=== PATIENT | male | born 1960 | race African-American/Black ===

== ENCOUNTER 2018-11-09 02:40 | Inpatient (IN) ==
[2018-11-09 03:08] LABS: Basophils % 0.4 % (0.1-2.0); Eosinophils % 1.2 % (0.1-12.0); Hematocrit 45.1 % (42.0-52.0); Hemoglobin 14.1 g/dL (14.1-18.0); Lymphocytes # 0.5 K/mm3 (0.7-4.5); Lymphocytes % 14.3 % (10-50); Mean Corpuscular HGB Conc 31.3 g/dL (31.8-35.4); Mean Corpuscular Volume 100.8 fl (80-94); Mean Platelet Volume 8.3 fl (7.4-10.4); Monocytes # 0.2 K/mm3 (0.1-1.0); Monocytes % 6.8 % (1.7-9.3); Neutrophils # 2.6 K/mm3 (1.8-7.8); Neutrophils % 77.2 % (37.0-80.0); Platelet Count 171 K/mm3 (142-424); Red Blood Count 4.48 M/mm3 (4.60-6.20); Red Cell Distribution Width 13.4 % (11.5-17.5); White Blood Count 3.4 K/mm3 (4.8-10.8)
[2018-11-09 03:22] LABS: Albumin Level 3.3 gm/dL (3.4-5.0); Albumin/Globulin Ratio 0.9 (1.1-1.8); Anion Gap 12.7 mEq/L (5-15); Bilirubin,Total 0.7 mg/dL (0.2-1.0); Calcium 10.1 mg/dL (8.5-10.1); Globulin 3.6 gm/dl (1.3-3.2); Total Protein,Serum 6.9 gm/dL (6.4-8.2)
[2018-11-09 04:09] LABS: Microscopic, Urine URINE MICROSCOPIC (MICROSCOPIC)
[2018-11-09 04:11] LABS: Appearance,Urine CLEAR (Clear); Bilirubin,Urine Negative (Negative); Blood, Urine Negative (Negative); Color,Urine YELLOW (Yellow); Glucose,Urine (UA) Negative (Negative); Ketones,Urine TRACE (Negative); Leukocyte Esterase,Urine Negative (Negative); Protein,Urine Negative (Negative)
[2018-11-09 04:22] LABS: ABG Base Excess 0.2 mmol/L (-2.4-2.3); ABG HCO3 23.8 mmhg (22.0-26.0); ABG Oxygen Saturation 90 % (90-100); ABG PCO2 33.2 mmhg (35.0-45.0); ABG PH 7.47 mmol/L (7.35-7.45); ABG PO2 54.7 mmhg (80-100); ABG TCO2 24.9 mmhg (23-27); Allen's Test Y; Oxygen 2 %
[2018-11-09 04:31] LABS: Bacteria,Urine Trace /lpf; Squamous Epithelial Cell,Urine Occasional #/hpf (0-5); WBC,Urine Occasional #/hpf (0-3)
--- NOTE | 2018-11-09 05:31 | Emergency Department Note ---
ED Disposition Clinical Impression: SIRS (systemic inflammatory response syndrome), Prostate enlargement, Schizo- affective schizophrenia CAP (community acquired pneumonia) Qualifiers: Laterality: unspecified laterality Qualified Code(s): J18.9 - Pneumonia, unspecified organism Diabetes mellitus Qualifiers: Diabetes mellitus type: type 2 Diabetes mellitus terminal supervisor insulin use: unspecified skilled nursing insulin use status Diabetes mellitus complication status: without complication Qualified Code(s): E11.9 - Type 2 diabetes mellitus without complications Cholelithiasis Qualifiers: Cholelithiasis location: gallbladder Cholecystitis presence: without cholecystitis Biliary obstruction: without biliary obstruction Qualified Co de(s): K80.20 - Calculus of gallbladder without cholecystitis without obstruction Incontinence of urine Qualifiers: Urinary Incontinence type: unspecified incontinence Qualified Code(s): R32 - Unspecified urinary incontinence Disposition: Admitted as Observation Condition on Discharge: Good Referrals: Donell Live MD [Primary Care Provider] - - Critical Care Critical Care Time: No Attestation: On 11/09/18, the high probability of a clinically significant, sudden or life threatening deterioration of the following system(s) required my full and direct attention, intervention and personal management. The time I documented below is in addition to time spent performing reported procedures but includes the following listed in this critical care notation. Medical Decision Making - Medical Records Medical records reviewed: Yes: I reviewed the patient's medical records. - Caden Inquiry Pt receiving controlled substance: No Vital Signs: 11/09/18 02:41 11/09/18 04:04 11/09/18 04:52 Temperature 102.0 F H Temperature Source Oral Pulse Rate [Right Radial] 103 H 97 H 100 H Respiratory Rate 20 18 18 Blood Pressure [Right Arm] 157/99 H 134/39 L 135/82 Blood Pressure Mean [Right Arm] 118 70 99 02 Sat by Pulse Oximetry 94 L 86 L 95 Oxygen Delivery Method Room Air Nasal Cannula Nasal Cannula Oxygen Flow Rate (LPM) 2 2 11/09/18 05:21 Temperature 100.3 F H Temperature Source Oral Pulse Rate [Right Radial] Respiratory Rate Blood Pressure [Right Arm] Blood Pressure Mean [Right Arm] 02 Sat by Pulse Oximetry Oxygen Delivery Method Oxygen Flow Rate (LPM) - Lab Data Lab results reviewed: Yes: I reviewed the patient's lab results. Lab Results 11/09/18 02:54: WBC 3.4 L D, RBC 4.48 L, Hgb 14.1, Hct 45.1, MCV 100.8 H, MCH 31.6 H, MCHC 31.3 L, RDW 13.4, Plt Count 171, MPV 8.3, Neut % (Auto) 77.2, Lymph % (Auto) 14.3, [place] % (Auto) 6.8, Eos % (Auto) 1.2, Baso % (Auto) 0.4, Neut # (Auto) 2.6, Lymph # (Auto) 0.5 L, [place] # (Auto) 0.2, Eos # (Auto) 0.0, Baso # (Auto) 0.0 11/09/18 02:54: Sodium 143, Potassium 3.7, Chloride 105, Carbon Dioxide 29, Anio n Gap 12.7, BUN 14, Creatinine 0.93, Estimated Creat Clear 79, Estimated GFR 84, Est GFR ( Amer) 101, Glucose 125 H, Calcium 10.1, Total Bilirubin 0.7, AST 10 L, ALT 14, Alkaline Phosphatase 43 L, Total Protein 6.9, Albumin 3.3 L, Globulin 3.6 H, Albumin/Globulin Ratio 0.9 L 11/09/18 02:54: Lactate 1.9 11/09/18 04:01: Urine Color Yellow, Urine Appearance Clear, Urine pH 7.0, Ur Specific [place] 1.010, Urine Protein Negative, Urine Glucose (UA) Negative, Urine Ketones Trace, Urine Blood Negative, Urine Nitrate Negative, Urine Bilirubin Negative, Urine Urobilinogen 2.0, Ur Leukocyte Esterase Negative, Urine WBC Occasional, Ur Squamous Epith Cells Occasional, Urine Bacteria Trace 11/09/18 04:20: Specimen Source R/r, O2 % 2, ABG pH 7.47 H, ABG pCO2 33.2 L, ABG pO2 54.7 L, ABG HCO3 23.8, ABG Total CO2 24.9, ABG O2 Saturation 90, ABG Base Excess 0.2, Macario Test Y 11/09/18 04:44: Influenza Type A Ag Negative, Influenza Type B Ag Negative Result diagrams: 11/09/18 02:54 11/09/18 02:54 Orders (Tests/Meds): ED MEDICATIONS Generic Name Dose Route Start Last Admin Trade Name Freq PRN Reason Stop Dose Admin Sodium Chloride 1,000 mls @ 999 mls/hr 11/09/18 03:00 11/09/18 03:30 Sod Chlor 0.9% 1000ml Bag IV 11/09/18 04:00 999 mls/hr .[id number] ALECIA Administration Discontinued Medications Generic Name Dose Route Start Last Admin Trade Name Ivan PRN Reason Stop Dose Admin Acetaminophen 1,000 mg 11/09/18 03:00 11/09/18 03:03 Tylenol 500mg Tablet PO 11/09/18 03:01 1,000 mg ONCE ONE Administration ORDERS Category Date Time Status CT head/brain wo con Stat Cat Scan 11/09/18 02:47 Taken XR chest portable Stat Exams 11/09/18 03:37 Taken Free Valproic Acid (Depakote) Routine Lab 11/09/18 02:54 Received Blood Culture Stat Micro 11/09/18 03:00 Received ABG [Arterial Blood Gas] Stat RT 11/09/18 04:04 Ordered - Radiology Data #1 Image(s): Chest Image Reviewed: Yes I reviewed the patient's radiology image Preliminary Findings: Abnormal (bilat inflitrate ) - CT Data CT Scan: Head Time Received: 05:[address] Reviewed: Yes: I have viewed the radiologist's interpretation Preliminary Findings: Normal/NAD Fever HPI - General Chief Complaint: Fever Stated Complaint: fever Time Seen by Provider: 11/09/18 03:00 Mode of Arrival: EMS Source of Information: Patient, EMS, Medical Record Limitations: No Limitations Description of Symptoms (Recalled from ER Triage Doc. by RN): pt presents to ed from [facility] with c/o fever chills and "shaking" - History of Present Illness HPI Narrative: sent from [facility] with fever and chills and change in mental status - had recently been placed on abx for possible urinary infection - he unable to give hx - no rash or cough - has hx of diabetes and urinary incont MD complaint: fever Onset (ago): hour(s) Associated symptoms: chills Treatments prior to arrival fever: none - Related Data Home Medications Medication Instructions Recorded Confirmed amlodipine 5 mg-atorvastatin 10 mg 1 tab PO ONCE 04/17/17 11/09/18 tablet benztropine 1 mg tablet 1 mg PO BID 04/17/17 11/09/18 doxazosin 1 mg tablet 1 mg PO QHS 04/17/17 11/09/18 haloperidol 10 mg tablet 10 mg PO TID 04/17/17 11/09/18 lisinopril 20 mg tablet 20 mg PO ONCE 04/17/17 11/09/18 melatonin 5 mg capsule 10 mg PO DAILY 04/17/17 11/09/18 metformin 500 mg tablet 500 mg PO BID 04/17/17 11/09/18 metoprolol tartrate 25 mg tablet 25 mg PO BID 04/17/17 11/09/18 omeprazole magnesium 20 mg 20 mg PO BID 04/17/17 11/09/18 tablet,delayed release trazodone 150 mg tablet 75 mg PO QHS PRN 04/17/17 11/09/18 acetaminophen 325 mg capsule 325 mg PO Q6H PRN 07/03/17 11/09/18 divalproex 500 mg tablet,delayed 500 mg PO QID 07/03/17 11/09/18 release ergocalciferol (vitamin D2) 50,000 50,000 unit PO QWEEK 07/03/17 11/09/18 unit capsule finasteride 5 mg tablet 5 mg PO ONCE 07/03/17 11/09/18 metoprolol succinate ER 50 mg 50 mg PO ONCE 07/03/17 11/09/18 tablet,extended release 24 hr Guaifenesin/Dextromethorphan 10 ml PO Q4HP PRN 11/09/18 11/09/18 [Robafen Dm Cough Syrup] Oxybutynin Chloride [Ditropan Xl] 5 mg PO BID 11/09/18 11/09/18 Sitagliptin Phosphate [Januvia 100 mg PO DAILY 11/09/18 11/09/18 100mg tablet] levoFLOXacin [Levaquin] 500 mg PO DAILY 11/09/18 11/09/18 Allergies Allergy/AdvReac Type Severity Reaction Status Date / Time chlorpromazine Allergy Unknown Verified 11/09/18 02:47 [From Thorazine] diphenhydramine Allergy Unknown Verified 11/09/18 02:47 [From Benadryl Allergy] [facility] History - Hepatitis A Screen Drug use history?: No High risk sexual behaviors?: No History of sexually transmitted infection?: No Currently employed?: No Childcare worker?: No Do you have indoor plumbing?: Yes Do you have electricity?: Yes Attestation statement:: This patient has been screened for Hepatitis A risk factors. I have reviewed the patient's past medical history: Yes Medical History: Reports:: Diabetes Mellitus Type 1, Gastroesophageal Reflux Disease(GERD), Hypertension Other Medical History: Reports: Other Laterality Cases: Bilateral: Other Amputation: No Fractures: No - Social History Smoking Status: Current every day smoker Tobacco Type: cigarettes # Packs/Day (cigarettes): 1 Alcohol Intake: never Alcohol Intake Frequency:: holidays/special occasions only Substance Use Type: denies use Occupational Status: disabled Housing: correction Family Hx:: No significant family history ROS Obtained: Yes All systems reviewed & no additional complaints - Constitutional Constitutional: Reports fever(s) - Eyes Eyes: Denies change in vision - ENT Ears, Nose, Mouth, and Throat: Denies sore throat - Cardiovascular Cardiovascular: Denies chest pain - Respiratory Respiratory: No cough - Gastrointestinal Gastrointestingal: Denies: diarrhea, nausea - Genitourinary Male Genitourinary: Denies hematuria - Musculoskeletal Musculoskeletal: Denies joint pain - Integumentary/Breasts Skin/Breast: Denies rash - Neurologic Neurologic: Denies convulsions, Denies focal weakness, Denies loss of vision Physical Exam - General General appearance: alert - Head Head exam: normocephalic - Eye Eye exam: Present: PERRL, EOMI. Absent: scleral icterus - ENT ENT exam: Present: mucous membranes dry - Neck Neck exam: Present: trachea midline - Respiratory Respiratory exam: Present: other (dec bs bilat ). Absent: respiratory distress - Cardiovascular Cardiovascular exam: Present: regular rate, systolic murmur - Abdominal Exam Abdominal exam: Present: soft - Extremities Exam Extremities exam: Present: full ROM. Absent: tenderness - Neurological Exam Neurological exam: Present: alert, CN II-XII intact. Absent: motor sensory deficit - Skin Skin exam: Absent: rash
--- NOTE | 2018-11-09 07:38 | Pharmacy Consult Notes ---
[facility] Pharmacy VTE Monitoring - Patient Demographics Admission date: 11/09/18 Report Date: 11/09/18 Time: 07:38 Allergies/Adverse Reactions: Patient Allergies chlorpromazine [From Thorazine] Allergy (Unknown, Verified 11/09/18 02:47) diphenhydramine [From Benadryl Allergy] Allergy (Unknown, Verified 11/09/18 02:47) Height: 1.75 m Weight: 70.817 kg Patient Problems: Current Active Problems Prostate enlargement (Acute) Cholelithiasis (Acute) Incontinence of urine (Acute) CAP (community acquired pneumonia) (Acute) SIRS (systemic inflammatory response syndrome) (Acute) Diabetes mellitus (Acute) Schizo-affective schizophrenia (Acute) - VTE Risk Labs: VTE Related Lab Results Hgb 14.1 g/dL (14.1-18.0) 11/09/18 02:54 Hct 45.1 % (42.0-52.0) 11/09/18 02:54 Plt Count 171 K/mm3 (142-424) 11/09/18 02:54 BUN 14 mg/dL (7-18) 11/09/18 02:54 Creatinine 0.93 mg/dL (0.70-1.30) 11/09/18 02:54 Estimated Creat Clear 79 mL/min (50-200) 11/09/18 02:54 - Prophylaxis VTE Prophylaxis Ordered?: Yes Types of VTE Prophylaxis: TEDS Knee High Location of Applied Device: Bilateral Lower Extremeties - VTE Diagnosis Confirmed Treatment or plan recommended: Continue Current Treatment
--- NOTE | 2018-11-09 16:45 | History & Physical Report ---
*Admission Date: 11/09/18 *Chief complaint: fever *History of present illness: this pt was sent from long-term for fever and altered mental status - he had been in the ed prior with urinary sx and was sent home on abx - he has hx of incont and increased prostate - pt was admitted with cap with abx and fluids [facility] History I have reviewed the patient's past medical history: Yes Medical History: Reports:: Diabetes Mellitus Type 1, Gastroesophageal Reflux Disease(GERD), Hypertension Denies:: Cancer, Diabetes Mellitus Type 2, MRSA *Have you ever received a pneumonia vaccine?: No *Have you received a flu vaccine this season?: No Other Medical History: Reports: Other Laterality Cases: Bilateral: Other Amputation: No Fractures: No - *Social History Smoking Status: Current every day smoker Tobacco Type: cigarettes # Packs/Day (cigarettes): 1 Alcohol Intake: never Alcohol Intake Frequency:: holidays/special occasions only Substance Use Type: denies use *Occupational Status:: disabled Housing: snf *Travel in the last 8 weeks: None Family Hx:: Unable to obtain Review of Systems - Review of Systems Review of systems:: pertinent systems reviewed and negative unless documented below - Constitutional Reports fever(s) - Eyes Denies change in vision - ENT Denies sore throat - *Cardiovascular Denies chest pain at rest - *Respiratory Reports cough, Denies coughing up blood - *Gastrointestinal Denies abdominal pain - *Genitourinary Denies blood in urine - *Musculoskeletal Denies joint pain, Denies joint swelling - Integumentary/Breasts Denies rash - *Neurologic Denies seizure-like activity, Denies localized weakness, Denies loss of vision - Psychiatric Reports confusion Meds Home Medications Medication Instructions Recorded Confirmed Type doxazosin 1 mg tablet 1 mg PO QHS 04/17/17 11/09/18 History haloperidol 10 mg tablet 10 mg PO TID 04/17/17 11/09/18 History lisinopril 20 mg tablet 20 mg PO DAILY 04/17/17 11/09/18 History melatonin 5 mg capsule 10 mg PO HS 04/17/17 11/09/18 History metformin 500 mg tablet 500 mg PO BIDWM 04/17/17 11/09/18 History omeprazole magnesium 20 mg 20 mg PO DAILY 04/17/17 11/09/18 History tablet,delayed release trazodone 150 mg tablet 150 mg PO HS 04/17/17 11/09/18 History divalproex 500 mg tablet,delayed 500 mg PO QID 07/03/17 11/09/18 History release ergocalciferol (vitamin D2) 50,000 50,000 unit PO MO@0900 07/03/17 11/09/18 History unit capsule finasteride 5 mg tablet 5 mg PO HS 07/03/17 11/09/18 History metoprolol succinate ER 50 mg 50 mg PO DAILY 07/03/17 11/09/18 History tablet,extended release 24 hr Acetaminophen 650 mg PO Q4HP PRN 11/09/18 11/09/18 History Amlodipine Besylate [Amlodipine 5 mg PO DAILY 11/09/18 11/09/18 History 5mg tab] Benztropine Mesylate [Cogentin 1mg 1 mg PO HS 11/09/18 11/09/18 History tablet] Guaifenesin/Dextromethorphan 10 ml PO Q4HP PRN 11/09/18 11/09/18 History [Robafen Dm Cough Syrup] Metoprolol Succinate 25 mg PO DAILY 11/09/18 11/09/18 History Oxybutynin Chloride [Ditropan Xl] 5 mg PO BID 11/09/18 11/09/18 History Sitagliptin Phosphate [Januvia 100 mg PO DAILY 11/09/18 11/09/18 History 100mg tablet] levoFLOXacin [Levaquin] 500 mg PO DAILY 11/09/18 11/09/18 History Allergies Allergy/AdvReac Type Severity Reaction Status Date / Time chlorpromazine Allergy Unknown Verified 11/09/18 02:47 [From Thorazine] diphenhydramine Allergy Unknown Verified 11/09/18 02:47 [From Benadryl Allergy] Exam Vital signs and Labs for Last 24 Hours: Temp Pulse Resp BP Pulse Ox 99.0 F 96 H 17 132/89 92 L 11/09/18 16:33 11/09/18 16:33 11/09/18 16:33 11/09/18 16:33 11/09/18 16:33 Laboratory Results - last 24 hr 11/09/18 02:54: WBC 3.4 L D, RBC 4.48 L, Hgb 14.1, Hct 45.1, MCV 100.8 H, MCH 31.6 H, MCHC 31.3 L, RDW 13.4, Plt Count 171, MPV 8.3, Neut % (Auto) 77.2, Lymph % (Auto) 14.3, [place] % (Auto) 6.8, Eos % (Auto) 1.2, Baso % (Auto) 0.4, Neut # (Auto) 2.6, Lymph # (Auto) 0.5 L, [place] # (Auto) 0.2, Eos # (Auto) 0.0, Baso # (Auto) 0.0 11/09/18 02:54: Sodium 143, Potassium 3.7, Chloride 105, Carbon Dioxide 29, Anion Gap 12.7, BUN 14, Creatinine 0.93, Estimated Creat Clear 79, Estimated GFR 84, Est GFR ( Amer) 101, Glucose 125 H, Calcium 10.1, Total Bilirubin 0.7, AST 10 L, ALT 14, Alkaline Phosphatase 43 L, Total Protein 6.9, Albumin 3.3 L, Globulin 3.6 H, Albumin/Globulin Ratio 0.9 L 11/09/18 02:54: Lactate 1.9 11/09/18 04:01: Urine Color Yellow, Urine Appearance Clear, Urine pH 7.0, Ur Specific [place] 1.010, Urine Protein Negative, Urine Glucose (UA) Negative, Urine Ketones Trace, Urine Blood Negative, Urine Nitrate Negative, Urine Bilirubin Negative, Urine Urobilinogen 2.0, Ur Leukocyte Esterase Negative, Urine WBC Occasional, Ur Squamous Epith Cells Occasional, Urine Bacteria Trace 11/09/18 04:20: Specimen Source R/r, O2 % 2, ABG pH 7.47 H, ABG pCO2 33.2 L, ABG pO2 54.7 L, ABG HCO3 23.8, ABG Total CO2 24.9, ABG O2 Saturation 90, ABG Base Excess 0.2, Macario Test Y 11/09/18 04:44: Influenza Type A Ag Negative, Influenza Type B Ag Negative 11/09/18 06:58: POC Glucose 85 11/09/18 11:10: POC Glucose 117 H I & O for Last 24 hours: Intake & Output 11/07/18 11/08/18 11/09/18 11/10/18 11:59 11:59 11:59 11:59 Intake Total 1370 / 1370 360 / 360 Balance 1370 / 1370 360 / 360 Weight 156 lb 2 oz 156 lb 1.996 oz - Constitutional no acute distress, agitated - *Routine HEENT Exam Head: Present: normocephalic Eye: Present: EOMI, PERRL. Absent: conjunctival icterus ENT: Present: mucous membranes dry - *Routine Neck Exam Present: supple - *Routine Respiratory Exam Present: decreased breath sounds - *Routine Cardiovascular Exam Present: RRR, murmur - *Routine Abdominal Exam Present: soft - *Routine Extremities Exam Absent: calf tenderness - *Routine Skin Exam Present: intact - *Routine Neurological Exam Present: CN II-XII intact, altered mental status, moving all extremities - Routine Psychiatric Exam Present: unable to assess Assessment and Plan (1) Prostate enlargement Current visit: Yes Status: Acute Category: Medical Code(s): N40.0 - Benign prostatic hyperplasia without lower urinary tract symptoms (2) Cholelithiasis Current visit: Yes Status: Acute Qualifiers: Cholelithiasis location: gallbladder Cholecystitis presence: without cholecystitis Biliary obstruction: without biliary obstruction Qualified Code(s): K80.20 - Calculus of gallbladder without cholecystitis without obstruction Category: Medical Code(s): K80.20 - Calculus of gallbladder without cholecystitis without obstruction (3) Hydronephrosis Current visit: No Status: Acute Qualifiers: Hydronephrosis type: unspecified Qualified Code(s): N13.30 - Unspecified hydronephrosis Category: Medical Code(s): N13.30 - Unspecified hydronephrosis (4) Incontinence of urine Current visit: Yes Status: Acute Qualifiers: Urinary Incontinence type: unspecified incontinence Qualified Code(s): R32 - Unspecified urinary incontinence Category: Medical Code(s): R32 - Unspecified urinary incontinence (5) CAP (community acquired pneumonia) Current visit: Yes Status: Acute Qualifiers: Laterality: unspecified laterality Qualified Code(s): J18.9 - Pneumonia, unspecified organism Category: Medical Code(s): J18.9 - Pneumonia, unspecified organism (6) SIRS (systemic inflammatory response syndrome) Current visit: Yes Status: Acute Category: Medical Code(s): R65.10 - Systemic inflammatory response syndrome (SIRS) of non-infectious origin without acute organ dysfunction (7) Schizo-affective schizophrenia Current visit: Yes Status: Acute Category: Medical Code(s): F25.0 - Schizoaffective disorder, bipolar type
--- NOTE | 2018-11-10 12:37 | Consult Report ---
*Admission Date: 11/09/18 *Reason for consult:: Prostate enlargement *History of present illness: [facility] with some mental status changes. He actually has chronic schizophrenia and resides there. He has a pop of the [facility]. I have been asked to see him for prostate enlargement. There is some question of whether he had a urinary infection although his urinal ysis was completely unremarkable upon his admission here yesterday. He had a PSA on 08 November which was 3.2. He had a CT scan upon admission. This was of the chest abdomen and pelvis. This did reveal some prostate enlargement and some general thickening of the bladder wall although not distended. He had no evidence of renal masses or tumors. No evidence of stones. He is unable to give any information. I reviewed his chart and his CT scan. Physical exam he is quite agitated. Rectal exam was deferred based upon the above findings. He does not appear to be in retention. His creatinine was 0.9. Impression prostate enlargement on CT scan. He is in a depends. I see no reason for further intervention at this time. I see no reason to suspect prostate cancer. I will see him on an as-needed basis Review of Systems - *Neurologic Denies seizure-like activity, Denies localized weakness, Denies loss of vision [facility] History Medical History: Reports:: Diabetes Mellitus Type 1, Gastroesophageal Reflux Disease(GERD), Hypertension Denies:: Cancer, Diabetes Mellitus Type 2, MRSA *Have you ever received a pneumonia vaccine?: No *Have you received a flu vaccine this season?: No Other Medical History: Reports: Other Laterality Cases: Bilateral: Other Amputation: No Fractures: No - *Social History Smoking Status: Current every day smoker Tobacco Type: cigarettes # Packs/Day (cigarettes): 1 Alcohol Intake: never Alcohol Intake Frequency:: holidays/special occasions only Substance Use Type: denies use *Occupational Status:: disabled Housing: longterm *Travel in the last 8 weeks: None Family Hx:: Unable to obtain Meds Home Medications Medication Instructions Recorded Confirmed Type doxazosin 1 mg tablet 1 mg PO QHS 04/17/17 11/09/18 History haloperidol 10 mg tablet 10 mg PO TID 04/17/17 11/09/18 History lisinopril 20 mg tablet 20 mg PO DAILY 04/17/17 11/09/18 History melatonin 5 mg capsule 10 mg PO HS 04/17/17 11/09/18 History metformin 500 mg tablet 500 mg PO BIDWM 04/17/17 11/09/18 History omeprazole magnesium 20 mg 20 mg PO DAILY 04/17/17 11/09/18 History tablet,delayed release trazodone 150 mg tablet 150 mg PO HS 04/17/17 11/09/18 History divalproex 500 mg tablet,delayed 500 mg PO QID 07/03/17 11/09/18 History release ergocalciferol (vitamin D2) 50,000 50,000 unit PO MO@0900 07/03/17 11/09/18 History unit capsule finasteride 5 mg tablet 5 mg PO HS 07/03/17 11/09/18 History metoprolol succinate ER 50 mg 50 mg PO DAILY 07/03/17 11/09/18 History tablet,extended release 24 hr Acetaminophen 650 mg PO Q4HP PRN 11/09/18 11/09/18 History Amlodipine Besylate [Amlodipine 5 mg PO DAILY 11/09/18 11/09/18 History 5mg tab] Benztropine Mesylate [Cogentin 1mg 1 mg PO HS 11/09/18 11/09/18 History tablet] Guaifenesin/Dextromethorphan 10 ml PO Q4HP PRN 11/09/18 11/09/18 History [Robafen Dm Cough Syrup] Metoprolol Succinate 25 mg PO DAILY 11/09/18 11/09/18 History Oxybutynin Chloride [Ditropan Xl] 5 mg PO BID 11/09/18 11/09/18 History Sitagliptin Phosphate [Januvia 100 mg PO DAILY 11/09/18 11/09/18 History 100mg tablet] levoFLOXacin [Levaquin] 500 mg PO DAILY 11/09/18 11/09/18 History Allergies Allergy/AdvReac Type Severity Reaction Status Date / Time chlorpromazine Allergy Unknown Verified 11/09/18 02:47 [From Thorazine] diphenhydramine Allergy Unknown Verified 11/09/18 02:47 [From Benadryl Allergy] Exam Vital signs and Labs for Last 24 Hours: Temp Pulse Resp BP Pulse Ox 98.0 F 95 H 18 146/98 H 94 L 11/10/18 11:49 11/10/18 11:49 11/10/18 11:49 11/10/18 11:49 11/10/18 11:49 Laboratory Results - last 24 hr 11/09/18 17:02: POC Glucose 116 H 11/09/18 20:10: POC Glucose 110 11/10/18 05:48: POC Glucose 78 I & O for Last 24 hours: Intake & Output 11/07/18 11/08/18 11/09/18 11/10/18 23:59 23:59 23:59 23:59 Intake Total 2609 / 2609 879 / 879 Balance 2609 / 2609 879 / 879 Weight 70.817 kg 71.299 kg Results - Labs 11/09/18 02:54 11/09/18 02:54 Laboratory Results - last 24 hr 11/09/18 17:02: POC Glucose 116 H 11/09/18 20:10: POC Glucose 110 11/10/18 05:48: POC Glucose 78
--- NOTE | 2018-11-10 13:13 | Progress Note ---
Internal Medicine - PN: Subj *Date: 11/10/18 *Time: 18:25 Interval history: 57-year-old male lying in bed resting quietly, awakens to verbal/tactile stimuli. He denies any complaints during the night or now. Staff reports he was agitated during the night at various times. Exam Vital signs and Labs for Last 24 Hours: Temp Pulse Resp BP Pulse Ox 98.0 F 95 H 18 146/98 H 94 L 11/10/18 11:49 11/10/18 11:49 11/10/18 11:49 11/10/18 11:49 11/10/18 11:49 Laboratory Results - last 24 hr 11/09/18 17:02: POC Glucose 116 H 11/09/18 20:10: POC Glucose 110 11/10/18 05:48: POC Glucose 78 11/10/18 12:28: POC Glucose 69 L I & O for Last 24 hours: Intake & Output 11/07/18 11/08/18 11/09/18 11/10/18 23:59 23:59 23:59 23:59 Intake Total 2609 / 2609 879 / 879 Balance 2609 / 2609 879 / 879 Weight 156 lb 1.996 oz 157 lb 3 oz - Constitutional no acute distress - *Routine HEENT Exam Head: Present: normocephalic, atraumatic. Absent: tenderness of temporal artery Eye: Present: EOMI, PERRL. Absent: conjunctival icterus ENT: Present: mucous membranes dry. Absent: sinus tenderness - *Routine Neck Exam Present: supple, trachea midline. Absent: tracheal deviation - *Routine Respiratory Exam Present: CTA bilaterally. Absent: accessory muscle use, rales - *Routine Cardiovascular Exam Present: murmur - *Routine Abdominal Exam Present: soft, normoactive bowel sounds. Absent: tenderness, firm - *Routine Extremities Exam Present: full ROM, pulses intact. Absent: cyanosis - Routine Back/Spine/Pelvis Exam Back/Spine: Present: full ROM. Absent: CVA tenderness, pain with flexion - *Routine Skin Exam Present: intact, warm. Absent: cyanosis, erythema - *Routine Neurological Exam Present: alert, CN II-XII intact, moving all extremities - Routine Psychiatric Exam Present: normal affect. Absent: visual hallucinations, tactile hallucinations Assessment and Plan (1) Prostate enlargement Current visit: Yes Status: Acute Category: Medical Code(s): N40.0 - Benign prostatic hyperplasia without lower urinary tract symptoms (2) CAP (community acquired pneumonia) Current visit: Yes Status: Acute Qualifiers: Laterality: unspecified laterality Qualified Code(s): J18.9 - Pneumonia, unspecified organism Category: Medical Code(s): J18.9 - Pneumonia, unspecified organism (3) Schizo-affective schizophrenia Current visit: Yes Status: Acute Category: Medical Code(s): F25.0 - Schizoaffective disorder, bipolar type - Assessment and plan all Dx Assessment and Plan for all problems:: Rounds completed, Dr. Live will see this afternoon, all orders per Dr. Live 11/09 CXR IMPRESSION: Bilateral areas of alveolar consolidation. This could be from edema or pneumonia and because the bilateral appearance could be opportunistic. Suggest follow-up until resolution. Dictated by: [facility] has seen and recommends: He had a PSA on 08 November which was 3.2. He had a CT scan upon admission. This was of the chest abdomen and pelvis. This did reveal some prostate enlargement and some general thickening of the bladder wall although not distended. He had no evidence of renal masses or tumors. No evidence of stones. He is unable to give any information. I reviewed his chart and his CT scan. Physical exam he is quite agitated. Rectal exam was deferred based upon the above findings. He does not appear to be in retention. His creatinine was 0.9. Impression prostate enlargement on CT scan. He is in a depends. I see no reason for further intervention at this time. I see no reason to suspect prostate cancer. I will see him on an as-needed basis (Per Dr. Felipe) 1. PSA pending 2. Blood CX.s pending 3. Labs AM
[2018-11-11 06:28] LABS: Basophils % 0.2 % (0.1-2.0); Eosinophils % 0.1 % (0.1-12.0); Hematocrit 35.6 % (42.0-52.0); Hemoglobin 11.5 g/dL (14.1-18.0); Lymphocytes % 10.5 % (10-50); Mean Corpuscular HGB Conc 32.4 g/dL (31.8-35.4); Mean Corpuscular Volume 99.1 fl (80-94); Monocytes # 0.7 K/mm3 (0.1-1.0); Monocytes % 7.4 % (1.7-9.3); Neutrophils # 7.4 K/mm3 (1.8-7.8); Neutrophils % 81.7 % (37.0-80.0); Platelet Count 193 K/mm3 (142-424); Red Blood Count 3.59 M/mm3 (4.60-6.20); Red Cell Distribution Width 13.4 % (11.5-17.5)
[2018-11-11 06:50] LABS: Albumin Level 2.4 gm/dL (3.4-5.0); Albumin/Globulin Ratio 0.7 (1.1-1.8); Anion Gap 13.1 mEq/L (5-15); Bilirubin,Total 0.4 mg/dL (0.2-1.0); Calcium 9.8 mg/dL (8.5-10.1); Globulin 3.5 gm/dl (1.3-3.2); Total Protein,Serum 5.9 gm/dL (6.4-8.2)
--- NOTE | 2018-11-11 10:15 | Progress Note ---
Internal Medicine - PN: Subj *Date: 11/11/18 *Time: 10:14 Interval history: some better this am but still confused Exam Vital signs and Labs for Last 24 Hours: Temp Pulse Resp BP Pulse Ox 98.1 F 101 H 20 153/98 H 94 L 11/11/18 08:00 11/11/18 08:00 11/11/18 08:00 11/11/18 08:00 11/11/18 08:00 Laboratory Results - last 24 hr 11/10/18 12:28: POC Glucose 69 L 11/10/18 13:52: POC Glucose 101 11/10/18 16:15: POC Glucose 77 11/10/18 20:59: POC Glucose 80 11/11/18 05:50: WBC 9.0 D, RBC 3.59 L, Hgb 11.5 L, Hct 35.6 L, MCV 99.1 H, MCH 32.1 H, MCHC 32.4, RDW 13.4, Plt Count 193, MPV 8.0, Neut % (Auto) 81.7 H, Lymph % (Auto) 10.5, [place] % (Auto) 7.4, Eos % (Auto) 0.1, Baso % (Auto) 0.2, Neut # (Auto) 7.4, Lymph # (Auto) 1.0, [place] # (Auto) 0.7, Eos # (Auto) 0.0, Baso # (Auto) 0.0 11/11/18 05:50: Sodium 144, Potassium 3.1 L, Chloride 110 H, Carbon Dioxide 24, Anion Gap 13.1, BUN 9 D, Creatinine 0.72 D, Estimated Creat Clear 112, Estimated GFR 113, Est GFR ( Amer) 136 D, Glucose 86, Calcium 9.8, Total Bilirubin 0.4, AST 10 L, ALT 8 L D, Alkaline Phosphatase 38 L, Total Protein 5.9 L, Albumin 2.4 L, Globulin 3.5 H, Albumin/Globulin Ratio 0.7 L 11/11/18 05:55: POC Glucose 92 I & O for Last 24 hours: Intake & Output 11/08/18 11/09/18 11/10/18 11/11/18 11:59 11:59 11:59 11:59 Intake Total 1370 / 1370 2117 / 8 [id number] Balance 1370 / 1370 2117 Weight 156 lb 2 oz 157 lb 3 oz 154 lb 11.2 oz Microbiology Reports for the Last 24 Hours: Microbiology 11/09/18 03:00 Blood Blood Culture - Preliminary NO GROWTH AFTER 48 HOURS 11/09/18 03:00 Blood Blood Culture - Preliminary NO GROWTH AFTER 48 HOURS - Constitutional no acute distress - *Routine HEENT Exam Head: Present: normocephalic Eye: Present: EOMI, PERRL ENT: Present: mucous membranes dry - *Routine Neck Exam Absent: JVD - *Routine Respiratory Exam Present: decreased breath sounds - *Routine Cardiovascular Exam Present: RRR, murmur. Absent: rubs - *Routine Abdominal Exam Present: soft - *Routine Extremities Exam Absent: calf tenderness - *Routine Skin Exam Present: intact - *Routine Neurological Exam Present: alert, CN II-XII intact - Routine Psychiatric Exam Present: unable to assess Assessment and Plan (1) Prostate enlargement Current visit: Yes Status: Acute Category: Medical Code(s): N40.0 - Benign prostatic hyperplasia without lower urinary tract symptoms (2) Cholelithiasis Current visit: Yes Status: Acute Qualifiers: Cholelithiasis location: gallbladder Cholecystitis presence: without cholecystitis Biliary obstruction: without biliary obstruction Qualified Code(s): K80.20 - Calculus of gallbladder without cholecystitis without obstruction Category: Medical Code(s): K80.20 - Calculus of gallbladder without cholecystitis without obstruction (3) Hydronephrosis Current visit: No Status: Acute Qualifiers: Hydronephrosis type: unspecified Qualified Code(s): N13.30 - Unspecified hydronephrosis Category: Medical Code(s): N13.30 - Unspecified hydronephrosis (4) Incontinence of urine Current visit: Yes Status: Acute Qualifiers: Urinary Incontinence type: unspecified incontinence Qualified Code(s): R32 - Unspecified urinary incontinence Category: Medical Code(s): R32 - Unspecified urinary incontinence (5) CAP (community acquired pneumonia) Current visit: Yes Status: Acute Qualifiers: Laterality: unspecified laterality Qualified Code(s): J18.9 - Pneumonia, unspecified organism Category: Medical Code(s): J18.9 - Pneumonia, unspecified organism (6) SIRS (systemic inflammatory response syndrome) Current visit: Yes Status: Acute Category: Medical Code(s): R65.10 - Systemic inflammatory response syndrome (SIRS) of non-infectious origin without acute organ dysfunction (7) Schizo-affective schizophrenia Current visit: Yes Status: Acute Category: Medical Code(s): F25.0 - Schizoaffective disorder, bipolar type
[2018-11-12 06:15] LABS: Basophils % 0.2 % (0.1-2.0); Eosinophils # 0.1 K/mm3 (0.0-0.4); Eosinophils % 1.1 % (0.1-12.0); Hematocrit 32.9 % (42.0-52.0); Hemoglobin 10.6 g/dL (14.1-18.0); Lymphocytes # 1.1 K/mm3 (0.7-4.5); Lymphocytes % 17.2 % (10-50); Mean Corpuscular HGB Conc 32.1 g/dL (31.8-35.4); Mean Corpuscular Volume 99.4 fl (80-94); Mean Platelet Volume 8.1 fl (7.4-10.4); Monocytes # 0.5 K/mm3 (0.1-1.0); Monocytes % 7.3 % (1.7-9.3); Neutrophils # 4.6 K/mm3 (1.8-7.8); Neutrophils % 74.1 % (37.0-80.0); Platelet Count 220 K/mm3 (142-424); Red Blood Count 3.31 M/mm3 (4.60-6.20); Red Cell Distribution Width 13.5 % (11.5-17.5); White Blood Count 6.2 K/mm3 (4.8-10.8)
[2018-11-12 06:28] LABS: Albumin Level 2.2 gm/dL (3.4-5.0); Albumin/Globulin Ratio 0.6 (1.1-1.8); Anion Gap 10.9 mEq/L (5-15); Bilirubin,Total 0.4 mg/dL (0.2-1.0); Calcium 9.7 mg/dL (8.5-10.1); Globulin 3.4 gm/dl (1.3-3.2); Total Protein,Serum 5.6 gm/dL (6.4-8.2)
--- NOTE | 2018-11-12 09:39 | Discharge Summary ---
General - General Admission date:: 11/09/18 Discharge date: 11/12/18 HPI HPI: [facility] and altered mental status - he had been in the ed prior with urinary sx and was sent home on abx - he has hx of incont and increased prostate - pt was admitted with cap with abx and fluids Hospital Course Hospital Course: chest x ray:IMPRESSION: Bilateral areas of alveolar consolidation. This could be from edema or pneumonia and because the bilateral appearance could be opportunistic. Suggest follow-up until resolution. ct head:IMPRESSION: No acute intracranial process. Bilateral ethmoid and maxillary sinus mucosal thickening. Patient laying in bed states he is feeling better to baseline. Patient will be discharged back to [facility] on Omnicef for 7 days. Labs improved potassium slightly low will replace with oral potassium and recheck CMP in 1 week. While patient was in the hospital he had staff at bedside due to he has behavioral issues. Objective Vital signs: Temp Pulse Resp BP Pulse Ox 98.8 F 79 18 152/87 H 93 L 11/12/18 04:32 11/12/18 04:32 11/12/18 04:32 11/12/18 04:32 11/12/18 04:32 no acute distress - *Routine HEENT Exam Head: Present: normocephalic Eye: Present: PERRL ENT: Present: mucous membranes moist - *Routine Respiratory Exam Present: diminished air movement - *Routine Cardiovascular Exam Present: RRR - *Routine Abdominal Exam Present: soft, normoactive bowel sounds. Absent: tenderness - *Routine Extremities Exam Present: full ROM - *Routine Skin Exam Present: intact - *Routine Neurological Exam Present: alert - Routine Psychiatric Exam Present: normal affect Results Labs on day of discharge: Labs from last 24 hours 11/12/18 11/12/18 11/12/18 06:21 05:37 05:37 WBC 6.2 D RBC 3.31 L Hgb 10.6 L Hct 32.9 L MCV 99.4 H MCH 31.9 H MCHC 32.1 RDW 13.5 Plt Count 220 MPV 8.1 Neut % (Auto) 74.1 Lymph % (Auto) 17.2 [place] % (Auto) 7.3 Eos % (Auto) 1.1 Baso % (Auto) 0.2 Neut # (Auto) 4.6 Lymph # (Auto) 1.1 [place] # (Auto) 0.5 Eos # (Auto) 0.1 Baso # (Auto) 0.0 Sodium 147 H Potassium 2.9 L* Chloride 113 H Carbon Dioxide 26 Anion Gap 10.9 BUN 9 Creatinine 0.61 L Estimated Creat Clear 133 Estimated GFR 136 Est GFR ( Amer) 165 D Glucose 78 POC Glucose 89 Calcium 9.7 Total Bilirubin 0.4 AST 9 L ALT 8 L Alkaline Phosphatase 39 L Total Protein 5.6 L Albumin 2.2 L Globulin 3.4 H Albumin/Globulin Ratio 0.6 L Free Valproic Acid 11/11/18 11/11/18 11/11/18 22:31 16:57 11:44 WBC RBC Hgb Hct MCV MCH MCHC RDW Plt Count MPV Neut % (Auto) Lymph % (Auto) [place] % (Auto) Eos % (Auto) Baso % (Auto) Neut # (Auto) Lymph # (Auto) [place] # (Auto) Eos # (Auto) Baso # (Auto) Sodium Potassium Chloride Carbon Dioxide Anion Gap BUN Creatinine Estimated Creat Clear Estimated GFR Est GFR ( Amer) Glucose POC Glucose 89 86 84 Calcium Total Bilirubin AST ALT Alkaline Phosphatase Total Protein Albumin Globulin Albumin/Globulin Ratio Free Valproic Acid 11/09/18 02:54 WBC RBC Hgb Hct MCV MCH MCHC RDW Plt Count MPV Neut % (Auto) Lymph % (Auto) [place] % (Auto) Eos % (Auto) Baso % (Auto) Neut # (Auto) Lymph # (Auto) [place] # (Auto) Eos # (Auto) Baso # (Auto) Sodium Potassium Chloride Carbon Dioxide Anion Gap BUN Creatinine Estimated Creat Clear Estimated GFR Est GFR ( Amer) Glucose POC Glucose Calcium Total Bilirubin AST ALT Alkaline Phosphatase Total Protein Albumin Globulin Albumin/Globulin Ratio Free Valproic Acid 31.7 Preliminary micro results at discharge 11/09/18 03:00 Blood Culture - Preliminary Blood NO GROWTH AFTER 48 HOURS 11/09/18 03:00 Blood Culture - Preliminary Blood NO GROWTH AFTER 48 HOURS - Additional Comments Rounded with Dr. Live all orders per Maria T DS: Diagnosis - Discharge Diagnosis (1) Prostate enlargement Status: Acute (2) Cholelithiasis Status: Acute (3) Hydronephrosis Status: Acute (4) Incontinence of urine Status: Acute (5) CAP (community acquired pneumonia) Status: Acute (6) SIRS (systemic inflammatory response syndrome) Status: Acute (7) Schizo-affective schizophrenia Status: Acute Discharge Plan - Patient Discharge Instructions ACTIVITY: Continue current activity DIET: continue same diet Patient Instructions: DI for Pneumonia -- Adult - Follow up Plan Follow up with: Donell Live MD [Primary Care Provider] - 1 week Disposition: Home, Self-Usp Medications: Home Medications Medication Instructions Recorded Confirmed Type doxazosin 1 mg tablet 1 mg PO QHS 04/17/17 11/09/18 History haloperidol 10 mg tablet 10 mg PO TID 04/17/17 11/09/18 History lisinopril 20 mg tablet 20 mg PO DAILY 04/17/17 11/09/18 History melatonin 5 mg capsule 10 mg PO HS 04/17/17 11/09/18 History metformin 500 mg tablet 500 mg PO BIDWM 04/17/17 11/09/18 History omeprazole magnesium 20 mg 20 mg PO DAILY 04/17/17 11/09/18 History tablet,delayed release trazodone 150 mg tablet 150 mg PO HS 04/17/17 11/09/18 History divalproex 500 mg tablet,delayed 500 mg PO QID 07/03/17 11/09/18 History release ergocalciferol (vitamin D2) 50,000 50,000 unit PO MO@0900 07/03/17 11/09/18 History unit capsule finasteride 5 mg tablet 5 mg PO HS 07/03/17 11/09/18 History metoprolol succinate ER 50 mg 50 mg PO DAILY 07/03/17 11/09/18 History tablet,extended release 24 hr Acetaminophen 650 mg PO Q4HP PRN 11/09/18 11/09/18 History Amlodipine Besylate [Amlodipine 5 mg PO DAILY 11/09/18 11/09/18 History 5mg tab] Benztropine Mesylate [Cogentin 1mg 1 mg PO HS 11/09/18 11/09/18 History tablet] Guaifenesin/Dextromethorphan 10 ml PO Q4HP PRN 11/09/18 11/09/18 History [Robafen Dm Cough Syrup] Metoprolol Succinate 25 mg PO DAILY 11/09/18 11/09/18 History Oxybutynin Chloride [Ditropan Xl] 5 mg PO BID 11/09/18 11/09/18 History Sitagliptin Phosphate [Januvia 100 mg PO DAILY 11/09/18 11/09/18 History 100mg tablet] levoFLOXacin [Levaquin] 500 mg PO DAILY 11/09/18 11/09/18 History Cefdinir [Omnicef 300mg Capsule] 300 mg PO BID 5 Days #10 cap 11/12/18 Rx Prescriptions/Medication Reconciliation: New Cefdinir [Omnicef 300mg Capsule] 300 mg PO BID 5 Days #10 cap Continued doxazosin 1 mg tablet 1 mg PO QHS lisinopril 20 mg tablet 20 mg PO DAILY melatonin 5 mg capsule 10 mg PO HS metformin 500 mg tablet 500 mg PO BIDWM omeprazole magnesium 20 mg tablet,delayed release 20 mg PO DAILY trazodone 150 mg tablet 150 mg PO HS haloperidol 10 mg tablet 10 mg PO TID divalproex 500 mg tablet,delayed release 500 mg PO QID finasteride 5 mg tablet 5 mg PO HS metoprolol succinate ER 50 mg tablet,extended release 24 hr 50 mg PO DAILY ergocalciferol (vitamin D2) 50,000 unit capsule 50,000 unit PO MO@0900 Oxybutynin Chloride [Ditropan Xl] 5 mg PO BID Sitagliptin Phosphate [Januvia 100mg tablet] 100 mg PO DAILY Guaifenesin/Dextromethorphan [Robafen Dm Cough Syrup] 10 ml PO Q4HP PRN PRN Reason: Cough levoFLOXacin [Levaquin] 500 mg PO DAILY Acetaminophen 650 mg PO Q4HP PRN PRN Reason: PAIN OR FEVER Metoprolol Succinate 25 mg PO DAILY Amlodipine Besylate [Amlodipine 5mg tab] 5 mg PO DAILY Benztropine Mesylate [Cogentin 1mg tablet] 1 mg PO HS - Problem Reconciliation Problems Reviewed?: Yes
== END 2018-11-12 14:00 | disposition home or self-care (01) | DRG 194 ==
LOC: ER 02:40 → 2ND 02:40 → OBSVTOIN 06:49 → 2ND 06:49
PROVIDERS: ADMIT Emergency Medicine; ATTEND Emergency Medicine
CPT/HCPCS: 36415; 70450; 71010; 71045; 74177; 80053; 80165; 81001; 82803; 82962; 83605; 84132; 84153; 84154; 85025; 87040; 87086; 87275; 87276; 94640; 94761; 96365; 96367; 97162; 99283; 99285; J0456; Q9967

== ENCOUNTER 2019-06-26 11:09 | Emergency (ER) | payer MEDICARE, MEDICAID, SELFPAY ==
[2019-06-26 11:12] VITALS: BP 104/78; PULSE 79; RESP 18; TEMP 36.8; O2SAT 97; BMI 21.7
[2019-06-26 12:06] LABS: Basophils % 0.4 % (0.1-2.0); Eosinophils # 0.1 K/mm3 (0.0-0.4); Hematocrit 38.9 % (42.0-52.0); Lymphocytes # 0.6 K/mm3 (0.7-4.5); Lymphocytes % 9.1 % (10-50); Mean Corpuscular HGB Conc 33.4 g/dL (31.8-35.4); Mean Corpuscular Hemoglobin 32.6 pg (27.0-31.2); Mean Corpuscular Volume 97.5 fl (80-94); Monocytes # 0.7 K/mm3 (0.1-1.0); Monocytes % 10.3 % (1.7-9.3); Neutrophils # 5.4 K/mm3 (1.8-7.8); Neutrophils % 79.2 % (37.0-80.0); Platelet Count 215 K/mm3 (142-424); Red Blood Count 3.99 M/mm3 (4.60-6.20); Red Cell Distribution Width 12.7 % (11.5-17.5); White Blood Count 6.8 K/mm3 (4.8-10.8)
[2019-06-26 12:08] LABS: Chloride 105 mmol/L (98-107); Sodium 138 mmol/L (136-145)
[2019-06-26 12:11] LABS: Alanine Aminotransferase 9 U/L (12-78); Albumin Level 3.5 g/dl (3.5-5.0); Albumin/Globulin Ratio 1.3 (1.1-1.8); Alkaline Phosphatase 36 U/L (38-126); Aspartate Amino Transferase 15 U/L (17-59); Bilirubin,Total 0.4 mg/dl (0.2-1.3); Blood Urea Nitrogen 18 mg/dl (9-20); Calcium 9.4 mg/dl (8.4-10.2); Carbon Dioxide 29 mmol/L (22.0-30.0); Creatinine Clearance Estimated 83 mL/min (50-200); Estimated Glomerular Filt Rate 77 ml/min (>60); GFR (African American) 93 ML/MIN (>60); Globulin 2.6 g/dL (1.3-3.2); Glucose 114 mg/dl (74-100); Total Protein,Serum 6.1 g/dl (6.3-8.2)
--- NOTE | 2019-06-26 12:43 | HMH.EDNVD ---
ED Disposition Clinical Impression: Gastroenteritis Disposition: Home, Self-Care Condition on Discharge: Good Instructions: DI for Diarrhea and Traveler's Diarrhea -- Adult, DI for Diarrhea and Traveler's Diarrhea -- Child, DI for Nausea -- Adult, DI for Nausea -- Child - Critical Care Critical Care Time: No Attestation: On 06/26/19, the high probability of a clinically significant, sudden or life threatening deterioration of the following system(s) required my full and direct attention, intervention and personal management. The time I documented below is in addition to time spent performing reported procedures but includes the following listed in this critical care notation. Medical Decision Making - Medical Records Medical records reviewed: Yes: I reviewed the patient's medical records. - Caden Inquiry Pt receiving controlled substance: No Vital Signs: 06/26/19 11:12 Temperature 98.2 F Temperature Source Oral Pulse Rate [Right Radial] 79 Respiratory Rate 18 Blood Pressure [Right Arm] 104/78 L Blood Pressure Mean [Right Arm] 86 Blood Pressure Source [Right Arm] Automatic Cuff Blood Pressure Position [Right Arm] Sitting 02 Sat by Pulse Oximetry 97 Oxygen Delivery Method Room Air - Lab Data Lab results reviewed: Yes: I reviewed the patient's lab results. Lab Results 06/26/19 11:53: WBC 6.8, RBC 3.99 L, Hgb 13.0 L, Hct 38.9 L, MCV 97.5 H, MCH 32.6 H, MCHC 33.4, RDW 12.7, Plt Count 215, MPV 8.0, Neut % (Auto) 79.2, Lymph % (Auto) 9.1 L, [place] % (Auto) 10.3 H, Eos % (Auto) 1.0, Baso % (Auto) 0.4, Neut # (Auto) 5.4, Lymph # (Auto) 0.6 L, [place] # (Auto) 0.7, Eos # (Auto) 0.1, Baso # (Auto) 0.0 06/26/19 11:53: Sodium 138, Potassium 4.0, Chloride 105, Carbon Dioxide 29, Anion Gap 8.0, BUN 18, Creatinine 1.00, Estimated Creat Clear 83, Estimated GFR 77, Est GFR ( Amer) 93, Glucose 114 H, Calcium 9.4, Total Bilirubin 0.4, AST 15 L, ALT 9 L, Alkaline Phosphatase 36 L, Total Protein 6.1 L, Albumin 3.5, Globulin 2.6, Albumin/Globulin Ratio 1.3 Result diagrams: 06/26/19 11:53 06/26/19 11:53 Orders (Tests/Meds): ED MEDICATIONS Discontinued Medications Generic Name Dose Route Start Last Admin Trade Name Ivan PRN Reason Stop Dose Admin Sodium Chloride 1,000 mls @ 999 mls/hr 06/26/19 11:21 06/26/19 11:59 Sod Chlor 0.9% 1000ml Bag IV 06/26/19 12:21 999 mls/hr .Q1H1M ONE Administration Ondansetron HCl 4 mg 06/26/19 11:20 06/26/19 11:59 Zofran 4mg/2ml Vial IV 06/26/19 11:21 4 mg ONCE ONE Administration Nausea/Vomiting/Diarrhea HPI - General Chief complaint: Nausea/Vomiting/Diarrhea Stated complaint: Diarrhea Time Seen by Provider: 06/26/19 12:00 Mode of Arrival: EMS Source of Information: Patient Limitations: No Limitations Description of Symptoms (Recalled from ER Triage Doc. 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 complaint: nausea, vomiting Onset (ago): hour(s) Description of Vomiting: watery Description of Diarrhea: water Associated Abdominal Pain: No Relieving factors: none Exacerbating factors: none Context: sick contacts Associated symptoms: denies other symptoms - Related Data Home Medications Medication Instructions Recorded Confirmed doxazosin 1 mg tablet 1 mg PO QHS 04/17/17 12/17/18 haloperidol 10 mg tablet 10 mg PO TID 04/17/17 12/17/18 lisinopril 20 mg tablet 20 mg PO DAILY 04/17/17 12/17/18 melatonin 5 mg capsule 10 mg PO HS 04/17/17 12/17/18 metformin 500 mg tablet 500 mg PO BIDWM 04/17/17 12/17/18 omeprazole magnesium 20 mg 20 mg PO DAILY 04/17/17 12/17/18 tablet,delayed release trazodone 150 mg tablet 150 mg PO 04/17/17 12/17/18 divalproex 500 mg tablet,delayed 500 mg PO QID 07/03/17 12/17/18 release ergocalciferol (vitamin D2) 1,250 50,0
[2019-06-26 13:39] VITALS: BP 127/74; PULSE 79; RESP 16; TEMP 36.7; O2SAT 97
== END 2019-06-26 13:41 | disposition home or self-care (01) ==
PROVIDERS: Emergency Provider Family Medicine; PCP Emergency Medicine
DX: K52.9 Noninfective gastroenteritis and colitis, unspecified (principal); I10 Essential (primary) hypertension; E10.9 Type 1 diabetes mellitus without complications; Z79.84 Long term (current) use of oral hypoglycemic drugs; K21.9 Gastro-esophageal reflux disease without esophagitis; F17.210 Nicotine dependence, cigarettes, uncomplicated
CPT/HCPCS: 80053; 85025; 96365; 96375; 99282; J2405

== ENCOUNTER 2019-07-07 18:17 | Emergency (ER) | payer MEDICARE, MEDICAID, SELFPAY ==
[2019-07-07 18:17] VITALS: BP 131/98; PULSE 80; RESP 16; TEMP 37; O2SAT 99; BMI 27.1
[2019-07-07 18:18] VITALS: BMI 27.1
--- NOTE | 2019-07-07 18:19 | XR_ITS ---
PROCEDURE: XR CHEST PORTABLE CLINICAL HISTORY: weakness COMPARISON: XR CHEST PORTABLE from 11/09/2018 XR CHEST AP from 12/17/2018 FINDINGS: The cardiomediastinal silhouette and pulmonary vascularity are within normal limits. The lungs are clear without infiltrates, suspicious nodules, or pleural effusions. Minimal atelectatic changes are present in the right lung base laterally. IMPRESSION: Minimal right basilar atelectasis Dictated by: Macario Mcintosh MD 07/08/2019 07:25 Electronically signed by Macario Mcintosh MD in [place] 07/08/2019 07:25
--- NOTE | 2019-07-07 18:20 | HMH.EDGENADL ---
ED Disposition Clinical Impression: Gait instability Valproic acid toxicity Qualifiers: Encounter type: initial encounter Injury intent: accidental or unintentional Qualified Code(s): T42.6X1A - Poisoning by other antiepileptic and sedative-hypnotic drugs, accidental (unintentional), initial encounter Disposition: Home, Self-Care Condition on Discharge: Fair Additional Instructions: Do not give any divalproex until further instructed by Dr. Live. Assist with ambulation. Referrals: Donell Live MD [Primary Care Provider] - - Critical Care Critical Care Time: No Attestation: On , the high probability of a clinically significant, sudden or life threatening deterioration of the following system(s) required my full and direct attention, intervention and personal management. The time I documented below is in addition to time spent performing reported procedures but includes the following listed in this critical care notation. Medical Decision Making - Medical Records Medical records reviewed: Yes: I reviewed the patient's medical records. - Caden Inquiry Pt receiving controlled substance: No Vital Signs: 07/07/19 18:17 Temperature 98.6 F Temperature Source Oral Pulse Rate [Left Radial] 80 Respiratory Rate 16 Blood Pressure [Right Arm] 131/98 H Blood Pressure Mean [Right Arm] 109 Blood Pressure Position [Right Arm] Sitting 02 Sat by Pulse Oximetry 99 Oxygen Delivery Method Room Air - Lab Data Lab results reviewed: Yes: I reviewed the patient's lab results. Lab Results 07/07/19 18:20: WBC 4.3 L, RBC 3.84 L, Hgb 13.1 L, Hct 37.2 L, MCV 96.7 H, MCH 34.0 H, MCHC 35.2, RDW 12.6, Plt Count 161, MPV 7.8, Neut % (Auto) 65.6, Lymph % (Auto) 20.4, [place] % (Auto) 9.6 H, Eos % (Auto) 3.7, Baso % (Auto) 0.7, Neut # (Auto) 2.8, Lymph # (Auto) 0.9, [place] # (Auto) 0.4, Eos # (Auto) 0.2, Baso # (Auto) 0.0 07/07/19 18:20: Sodium 140, Potassium 4.2, Chloride 105, Carbon Dioxide 32 H, Anion Gap 7.2, BUN 17, Creatinine 0.80, Estimated Creat Clear 129, Estimated GFR 99, Est GFR ( Amer) 120, Glucose 99, Calcium 9.9, Total Creatine Kinase 26 L, Troponin I < 0.01, C-Reactive Protein 1.4, Total Valproic Acid 116.3 H* 07/07/19 18:20: Lactate 1.5 07/07/19 18:20: SARS-CoV-2 IgG Ab (Rapid) Negative, SARS-CoV-2 IgM Ab (Rapid) Negative 07/07/19 18:20: ESR 8 07/07/19 18:20: TSH 1.16, Free T4 Index 2.0 L, Thyroxine (T4) 6.0, T3 Uptake 34 07/07/19 19:25: Ammonia 10 Result diagrams: 07/07/19 18:20 07/07/19 18:20 Orders (Tests/Meds): ED MEDICATIONS Generic Name Dose Route Start Last Admin Trade Name Freq PRN Reason Stop Dose Admin Sodium Chloride 1,000 mls @ 999 mls/hr 07/07/19 19:00 07/07/19 19:17 Sod Chlor 0.9% 1000ml Bag IV 07/07/19 20:00 999 mls/hr .Q1H1M ALECIA Administration ORDERS Category Date Time Status CT head/brain wo con Stat Cat Scan 07/07/19 18:28 Taken XR chest portable Stat Exams 07/07/19 18:19 Taken Troponin I Q3H Lab 07/07/19 21:30 Ordered Troponin I Q3H Lab 07/08/19 00:30 Ordered Urinalysis-Acute [Urinalysis and Microscopic] Stat Lab 07/07/19 18:19 Ordered Blood Culture Stat Micro 07/07/19 18:20 Received - Radiology Data #1 Image(s): Chest Image Reviewed: Yes I reviewed the patient's radiology image Preliminary Findings: Normal/NAD - CT Data CT Scan: Head Time Received: 19:25 ([facility] fax) ED CT Reviewed: Yes: I have viewed the radiologist's interpretation Findings Narrative: No acute intracranial hemorrhage or acute territorial type infarct Small periventricular foci of white matter hypodensity, likely representing small vessel ischemic disease Mild stable ventriculomegaly Mild soft tissue swelling or scarring of the left posterior scalp again visualized - Physician Consults Physician Consulted: Maria T Time: 20:01 Reason -: Pt condition Comment/Response: Sent back to [facility]. Hold divalproex and he will give further instructions on when to restart.
--- NOTE | 2019-07-07 18:28 | CT_ITS ---
PROCEDURE: CT HEAD/BRAIN WO CON CLINICAL INDICATION: altered mental status Altered mental status, altered level of consciousness, confusion, disorientation COMPARISON: CT HEAD/BRAIN WO CON from 12/17/2018 TECHNIQUE: Axial images obtained. All CT scans at the facility use one or more dose reduction, viz: automated exposure control, ma/kV adjustment per patient size (including targeted exams where dose is matched to indication, i.e. head), or iterative reconstruction technique. FINDINGS: No midline shift, mass effect, intracranial hemorrhage, hydrocephalus, or extra-axial fluid collection is evident. The calvarium has an unremarkable appearance. No mastoid effusion. Mild mucosal thickening noted in the paranasal sinuses. IMPRESSION: No acute intracranial finding Dictated by: Macario Mcintosh MD 07/08/2019 08:37 Electronically signed by Macario Mcintosh MD in [facility] 07/08/2019 08:37
[2019-07-07 18:35] LABS: Basophils % 0.7 % (0.1-2.0); Eosinophils # 0.2 K/mm3 (0.0-0.4); Eosinophils % 3.7 % (0.1-12.0); Hematocrit 37.2 % (42.0-52.0); Hemoglobin 13.1 g/dL (14.1-18.0); Lymphocytes # 0.9 K/mm3 (0.7-4.5); Lymphocytes % 20.4 % (10-50); Mean Corpuscular HGB Conc 35.2 g/dL (31.8-35.4); Mean Corpuscular Volume 96.7 fl (80-94); Mean Platelet Volume 7.8 fl (7.4-10.4); Monocytes # 0.4 K/mm3 (0.1-1.0); Monocytes % 9.6 % (1.7-9.3); Neutrophils # 2.8 K/mm3 (1.8-7.8); Neutrophils % 65.6 % (37.0-80.0); Platelet Count 161 K/mm3 (142-424); Red Blood Count 3.84 M/mm3 (4.60-6.20); Red Cell Distribution Width 12.6 % (11.5-17.5); White Blood Count 4.3 K/mm3 (4.8-10.8)
[2019-07-07 18:41] LABS: Chloride 105 mmol/L (98-107); Potassium 4.2 mmoL/L (3.5-5.1); Sodium 140 mmol/L (136-145)
[2019-07-07 18:44] LABS: Anion Gap 7.2 mEq/L (5-15); Blood Urea Nitrogen 17 mg/dl (9-20); Calcium 9.9 mg/dl (8.4-10.2); Carbon Dioxide 32 mmol/L (22.0-30.0); Creatine Kinase 26 U/L (55-170); Creatinine Clearance Estimated 129 mL/min (50-200); Estimated Glomerular Filt Rate 99 ml/min (>60); GFR (African American) 120 ML/MIN (>60); Glucose 99 mg/dl (74-100)
--- NOTE | 2019-07-07 18:44 | PC.NURSE ---
pt to CT
[2019-07-07 18:45] LABS: Lactic Acid 1.5 mmol/L (0.7-2.1)
[2019-07-07 18:50] LABS: C-Reactive Protein 1.4 mg/L (0-4)
[2019-07-07 19:02] LABS: Troponin I < 0.01 ng/ml (0.00-0.034)
[2019-07-07 19:07] LABS: Coronavirus 19 IgG Antibody Negative (Negative); Coronavirus 19 IgM Antibody Negative (Negative)
[2019-07-07 19:10] LABS: Erythrocyte Sedimentation Rate 8 mm/hr (0-20)
[2019-07-07 19:11] LABS: Triiodothryronine (T3) Uptake 34 % (23.5-40.5)
--- NOTE | 2019-07-07 19:16 | PC.NURSE ---
pt refusing vitals at this time.
[2019-07-07 19:18] LABS: Valproic Acid, (Depakene) 116.3 ug/ml (50-100)
--- NOTE | 2019-07-07 19:18 | PC.NURSE ---
Pt refused straight cath for urine
[2019-07-07 19:25] LABS: Thyroid Stimulating Hormone 1.16 uIU/mL (0.465-4.68)
--- NOTE | 2019-07-07 19:32 | PC.NURSE ---
pt refuses catheter at this time
[2019-07-07 19:42] LABS: Ammonia 10 umol/L (9-30)
[2019-07-07 20:17] VITALS: BP 119/88; PULSE 81; RESP 16; TEMP 36.7; O2SAT 98
--- NOTE | 2019-07-07 20:27 | PC.NURSE ---
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
--- NOTE | 2019-07-07 21:23 | PC.NURSE ---
spoke with ade again to check on status of pt ride
[2019-07-07 21:57] VITALS: BP 122/84; PULSE 78; RESP 16; TEMP 36.7; O2SAT 98
== END 2019-07-07 22:01 | disposition home or self-care (01) ==
PROVIDERS: Emergency Provider Emergency Medicine; PCP Emergency Medicine
DX: T42.6X1A Poisoning by other antiepileptic and sedative-hypnotic drugs, accidental (unintentional), initial encounter (principal); R26.81 Unsteadiness on feet; I10 Essential (primary) hypertension; E10.9 Type 1 diabetes mellitus without complications; K21.9 Gastro-esophageal reflux disease without esophagitis; N40.0 Benign prostatic hyperplasia without lower urinary tract symptoms; F25.0 Schizoaffective disorder, bipolar type; F17.210 Nicotine dependence, cigarettes, uncomplicated; Z79.899 Other long term (current) drug therapy; C61 Malignant neoplasm of prostate
CPT/HCPCS: 70450; 71045; 80048; 80164; 82140; 82550; 83605; 84436; 84443; 84479; 84484; 85025; 85651; 86140; 86328; 87040; 87077; 96365; 99283; 99284

== ENCOUNTER 2019-07-17 18:49 | Emergency (ER) | payer MEDICARE, MEDICAID, SELFPAY ==
[2019-07-17 18:50] VITALS: BP 121/91; PULSE 91; RESP 16; TEMP 37.1; O2SAT 98; BMI 20.3
[2019-07-17 19:01] LABS: POC Glucose,Bedside 111 (70-110)
--- NOTE | 2019-07-17 19:01 | XR_ITS ---
PROCEDURE: XR CHEST PORTABLE CLINICAL HISTORY: fall COMPARISON: Portable upright chest 07/07/2019 FINDINGS: The cardiomediastinal silhouette and pulmonary vascularity are within normal limits. There is somewhat patchy ill-defined opacities in the right infrahilar region and right lower lobe and costophrenic angle certainly more prominent than on the recent chest film of 07/07/2019. The right upper lung field and left lung gordillo are clear except for very minimal atelectasis or scarring at the left base. There is possibly small amount of reactive pleural effusion at the right costophrenic angle. IMPRESSION: Findings suggestive of right lower lobe bronchopneumonia with associated small right pleural effusion Dictated by: Dr. Loki Willoughby MD 07/18/2019 07:[address] Loki Willoughby MD in [place] 07/18/2019 07:28
--- NOTE | 2019-07-17 19:02 | CT_ITS ---
PROCEDURE: CT HEAD/BRAIN WO CON Patient Age:58Y CLINICAL INDICATION: fall lt side weakness COMPARISON: No exams were available for comparison TECHNIQUE: Helical images were obtained because the patient un cooperative and moving. Axial and sagittal reconstructions performed from the obtained image data. All CT scans at the facility use one or more dose reduction, viz: automated exposure control, ma/kV adjustment per patient size (including targeted exams where dose is matched to indication, i.e. head), or iterative reconstruction technique. FINDINGS: No acute intracranial findings.. No significant change since 07/07/2019 CT No intracranial hemorrhage. No hydrocephalus.The ventricles and basal cisterns appear clear and satisfactory. No mass or midline shift nor mass effect. No subdural or extra-axial fluid collection is evident. Perhaps minor cerebral atrophy The posterior fossa unremarkable. Skull intact- calvarium unremarkable appearance. Scattered small dermal calcifications at scalp Minimal developed mastoid air cells. No significant mastoid effusions.. Middle ear clear. IAC's symmetric. Nosinus air-fluid level. Minor mucosal thickening sphenoid ethmoid air cells sinuses. Only top of maxillary sinuses imaged. Only small frontal sinuses. IMPRESSION: No acute intracranial findings . Stable CT of the brain versus June 2019 . Diffuse mild mucosal thickening sphenoid sinus and ethmoid air cells incidentally noted and slightly more pronounced than on June 2019. No air-fluid levels Dictated by: Luis Carlos Esqueda MD 07/17/2019 20:02 Electronically signed by Luis Carlos Esqueda MD in [facility] 07/17/2019 20:02
[2019-07-17 19:30] LABS: Basophils % 0.5 % (0.1-2.0); Eosinophils # 0.1 K/mm3 (0.0-0.4); Eosinophils % 3.8 % (0.1-12.0); Hemoglobin 12.3 g/dL (14.1-18.0); Lymphocytes # 1.1 K/mm3 (0.7-4.5); Lymphocytes % 30.5 % (10-50); Mean Corpuscular HGB Conc 34.3 g/dL (31.8-35.4); Mean Corpuscular Hemoglobin 33.8 pg (27.0-31.2); Mean Corpuscular Volume 98.5 fl (80-94); Mean Platelet Volume 7.4 fl (7.4-10.4); Monocytes # 0.4 K/mm3 (0.1-1.0); Monocytes % 11.8 % (1.7-9.3); Neutrophils # 1.9 K/mm3 (1.8-7.8); Neutrophils % 53.3 % (37.0-80.0); Platelet Count 206 K/mm3 (142-424); Red Blood Count 3.66 M/mm3 (4.60-6.20); Red Cell Distribution Width 12.9 % (11.5-17.5); White Blood Count 3.5 K/mm3 (4.8-10.8)
[2019-07-17 19:33] LABS: Alanine Aminotransferase 9 U/L (12-78); Albumin Level 3.5 g/dl (3.5-5.0); Albumin/Globulin Ratio 1.2 (1.1-1.8); Alkaline Phosphatase 41 U/L (38-126); Anion Gap 11.9 mEq/L (5-15); Aspartate Amino Transferase 14 U/L (17-59); Bilirubin,Total 0.3 mg/dl (0.2-1.3); Blood Urea Nitrogen 17 mg/dl (9-20); Calcium 10.1 mg/dl (8.4-10.2); Carbon Dioxide 30 mmol/L (22.0-30.0); Chloride 104 mmol/L (98-107); Creatinine Clearance Estimated 86 mL/min (50-200); Estimated Glomerular Filt Rate 87 ml/min (>60); GFR (African American) 105 ML/MIN (>60); Globulin 2.9 g/dL (1.3-3.2); Glucose 106 mg/dl (74-100); Potassium 3.9 mmoL/L (3.5-5.1); Sodium 142 mmol/L (136-145); Total Protein,Serum 6.4 g/dl (6.3-8.2)
[2019-07-17 19:38] LABS: Valproic Acid, (Depakene) 69.1 ug/ml (50-100)
--- NOTE | 2019-07-17 19:49 | PC.NURSE ---
back from rad
--- NOTE | 2019-07-17 20:17 | [facility].EDFALL ---
ED Disposition Clinical Impression: Schizo-affective schizophrenia, Enlarged prostate CAP (community acquired pneumonia) Qualifiers: Laterality: unspecified laterality Qualified Code(s): J18.9 - Pneumonia, unspecified organism Cholelithiasis Qualifiers: Cholelithiasis location: gallbladder Cholecystitis presence: without cholecystitis Biliary obstruction: without biliary obstruction Qualified Code(s): K80.20 - Calculus of gallbladder without cholecystitis without obstruction Falls Qualifiers: Encounter type: subsequent encounter Qualified Code(s): W19.XXXD - Unspecified fall, subsequent encounter Disposition: Home, Self-Care Condition on Discharge: Fair Instructions: How to Prevent Falls Additional Instructions: fluids and see pcp for follow up Prescriptions: levoFLOXacin [Levaquin 500mg tab] 500 mg PO DAILY #7 tab Prescription Printed Referrals: Donell Live MD [Primary Care Provider] - - Critical Care Critical Care Time: No Attestation: On 07/17/19, the high probability of a clinically significant, sudden or life threatening deterioration of the following system(s) required my full and direct attention, intervention and personal management. The time I documented below is in addition to time spent performing reported procedures but includes the following listed in this critical care notation. Medical Decision Making - Medical Records Medical records reviewed: Yes: I reviewed the patient's medical records. - Caden Inquiry Pt receiving controlled substance: No Vital Signs: 07/17/19 18:50 Temperature 98.8 F Temperature Source Oral Pulse Rate [Left Radial] 91 H Respiratory Rate 16 Blood Pressure [Right Arm] 121/91 H Blood Pressure Mean [Right Arm] 101 Blood Pressure Position [Right Arm] Sitting 02 Sat by Pulse Oximetry 98 Oxygen Delivery Method Room Air - Lab Data Lab results reviewed: Yes: I reviewed the patient's lab results. Lab Results 07/17/19 18:53: POC Glucose 111 H 07/17/19 19:00: WBC 3.5 L, RBC 3.66 L, Hgb 12.3 L, Hct 36.0 L, MCV 98.5 H, MCH 33.8 H, MCHC 34.3, RDW 12.9, Plt Count 206, MPV 7.4, Neut % (Auto) 53.3, Lymph % (Auto) 30.5, [place] % (Auto) 11.8 H, Eos % (Auto) 3.8, Baso % (Auto) 0.5, Neut # (Auto) 1.9, Lymph # (Auto) 1.1, [place] # (Auto) 0.4, Eos # (Auto) 0.1, Baso # (Auto) 0.0 07/17/19 19:00: Sodium 142, Potassium 3.9, Chloride 104, Carbon Dioxide 30, Anion Gap 11.9, BUN 17, Creatinine 0.90, Estimated Creat Clear 86, Estimated GFR 87, Est GFR ( Amer) 105, Glucose 106 H, Calcium 10.1, Total Bilirubin 0.3, AST 14 L, ALT 9 L, Alkaline Phosphatase 41, Total Protein 6.4, Albumin 3.5, Globulin 2.9, Albumin/Globulin Ratio 1.2, Total Valproic Acid 69.1 07/17/19 19:00: SARS-CoV-2 IgG Ab (Rapid) Negative, SARS-CoV-2 IgM Ab (Rapid) Negative Result diagrams: 07/17/19 19:00 07/17/19 19:00 Orders (Tests/Meds): ORDERS Category Date Time Status CT abdomen pelvis wo con Stat Cat Scan 07/17/19 20:[address] chest wo con Stat Cat Scan 07/17/19 20:36 Taken Chest XR -- portable [XR chest portable] Stat Exams 07/17/19 19:01 Taken SARS-CoV-2, AMY ([place]) Stat Lab 07/17/19 21:18 Ordered Urinalysis and Microscopic Stat Lab 07/17/19 19:02 Ordered - Radiology Data #1 Image(s): Chest Image Reviewed: Yes I reviewed the patient's radiology image Preliminary Findings: Abnormal (changes rt base ) - CT Data CT Scan: Head, Abdomen, Pelvis, Chest Time Received: 22:[address] Reviewed: Yes: I have viewed the radiologist's interpretation Preliminary Findings: Abnormal (see report ) - Reevaluation(s) Time: 22:17 Reevaluation #1: stable Fall HPI - General Chief Complaint: Fall Stated Complaint: Fall Time Seen by Provider: 07/17/19 20:00 Mode of Arrival: EMS Source of Information: Patient, EMS, Medical Record Limitations: No Limitations Description of Symptoms (Recalled from ER Triage Doc. by RN): to ed per squad pt resident ade sent for eval due to
--- NOTE | 2019-07-17 20:18 | PC.NURSE ---
notified lab of new tests ordered.
--- NOTE | 2019-07-17 20:34 | CT_ITS ---
PROCEDURE: CT ABDOMEN PELVIS WO CON CLINICAL INDICATION: abd Recent fall, cough, weight loss, smoking history COMPARISON: CT ABDOMEN PELVIS W CON from 11/07/2018 TECHNIQUE: Axial images obtained with sagittal and coronal reformats. All CT scans at the facility use one or more dose reduction, viz: automated exposure control, ma/kV adjustment per patient size (including targeted exams where dose is matched to indication, i.e. head), or iterative reconstruction technique. FINDINGS: Lower thorax: See CT chest report ABDOMEN: Liver: No masses or biliary dilatation. Gallbladder: The gallbladder somewhat contracted containing multiple tiny gallstones. Pancreas: No masses or peripancreatic fluid collections. Spleen: unremarkable Adrenals: unremarkable Kidneys/ureters: The kidneys are normal in size and no calculi and there is no obstructive uropathy. ABDOMEN & PELVIS: Stomach bowel: The stomach is moderately distended with ingested food particles and fluid. The small bowel appears grossly normal. There is scattered stool and gas seen throughout the colon especially transverse and proximal descending colon. There is mild diffuse wall thickening of the lower sigmoid colon and rectum and some degree of colitis cannot be excluded. Peritoneum: No abnormal fluid collections. No obvious inflammatory changes. No free air. Lymph nodes: No enlarged lymph nodes apparent. Vasculature: No evidence of abdominal aortic aneurysm. No retroperitoneal hemorrhage evident. Bones: No acute fracture PELVIS: Reproductive: unremarkable Bladder: There is prominent and diffuse wall thickening of the urinary bladder, the prostate is moderately enlarged resulting in mass effect at the base of the urinary bladder. Appendix: Unremarkable. No distention or periappendiceal phlegmonous change. IMPRESSION: Mild diffuse wall thickening of the lower sigmoid colon and rectum suggesting possibility of some degree of colitis. Prominent and diffuse thickening of the bladder wall due to chronic cystitis and/or more likely muscular hypertrophy secondary to enlarged prostate causing outlet obstruction. Cholelithiasis as noted Dictated by: Dr. Loki Willoughby MD 07/18/2019 07:[address] Loki Willoughby MD in [place] 07/18/2019 07:41
--- NOTE | 2019-07-17 20:36 | CT_ITS ---
PROCEDURE: CT CHEST WO CON CLINICAL INDICATION: cough Recent fall, cough, smoking history, some weight loss COMPARISON: No exams were available for comparison TECHNIQUE: Axial images obtained with sagittal and coronal reformats. All CT scans at the facility use one or more dose reduction, viz: automated exposure control, ma/kV adjustment per patient size (including targeted exams where dose is matched to indication, i.e. head), or iterative reconstruction technique. FINDINGS: HEART AND MEDIASTINAL STRUCTURES: Unremarkable. LUNGS AND PLEURAL SPACES: The lung gordillo are well expanded. There are coarse patchy ill-defined opacities most prominent in the subpleural location in the right infrahilar region and right lower lobe along with a small right pleural effusion. There is a focal opacity left lower lobe and in the left posterior gutter and there is a small left pleural effusion as well. BONY STRUCTURES: There are mild multilevel degenerate changes of the thoracic spine. UPPER ABDOMEN: Unremarkable ADDITIONAL FINDINGS: No other significant abnormalities. IMPRESSION: Bilateral pneumonic infiltrates with small bilateral pleural effusions and certainly Covid- 19 cannot be excluded Dictated by: Dr. Loki Willoughby MD 07/18/2019 07:[address] Loki Willoughby MD in [place] 07/18/2019 07:34
[2019-07-17 20:41] LABS: Coronavirus 19 IgG Antibody Negative (Negative); Coronavirus 19 IgM Antibody Negative (Negative)
--- NOTE | 2019-07-17 20:46 | PC.NURSE ---
back to ct for chest and abd ct's/no contrast per md request. states alfaro at [facility] is requesting to find a source for weightloss and behavioral changes, including frequent falls.
[2019-07-17 23:30] VITALS: BP 121/91; PULSE 91; RESP 16; TEMP 37.1; O2SAT 98
[2019-07-18 23:50] LABS: Covid-19 Nasal PCR Sendout UK DETECTED
== END 2019-07-17 23:32 | disposition home or self-care (01) ==
PROVIDERS: Emergency Provider Emergency Medicine; PCP Emergency Medicine
DX: F25.0 Schizoaffective disorder, bipolar type (principal); N40.0 Benign prostatic hyperplasia without lower urinary tract symptoms; J18.9 Pneumonia, unspecified organism; K80.20 Calculus of gallbladder without cholecystitis without obstruction; E10.9 Type 1 diabetes mellitus without complications; I10 Essential (primary) hypertension; K21.9 Gastro-esophageal reflux disease without esophagitis; F17.210 Nicotine dependence, cigarettes, uncomplicated
CPT/HCPCS: 70450; 71045; 71250; 74176; 80053; 80164; 82962; 85025; 86328; 93005; 99283; U0003